=== PATIENT | female | born 1980 | race Two or more races ===

== ENCOUNTER 2016-09-24 10:33 | Day surgery (SDC) | payer OTHER ==
[2016-09-24 12:06] LABS: % IMMATURE GRANULYOCYTES 0.4 % (0.0-1.1); ABSOLUTE IMMATURE GRANULOCYTES 0.03 10^3/uL (0.00-0.10); ADD DIFF? NO; ADD MORPH? NO; ADD SCAN? NO; ATYPICAL LYMPHOCYTE FLAG 0 (0-99); FRAGMENT RBC FLAG 0 (0-99); HEMATOCRIT 43.2 % (38.0-47.0); HEMOGLOBIN 14.2 g/dL (12.6-16.3); LEFT SHIFT FLG 0 (0-99); LIPEMIA HEMOLYSIS FLAG 80 (0-99); MEAN CELL HEMOGLOBIN CONCENTR. 32.9 g/dL (32.4-36.7); MEAN CELL VOLUME 88.2 fL (81.5-99.8); MEAN PLATELET VOLUME 9.4 fL (8.7-11.7); PLATELET CLUMPS FLAG 0 (0-99); PLATELET COUNT 337 10^3/uL (150-400)
[2016-09-24] MEDS ORDERED: MIDAZOLAM 2 MG/2 ML VIAL ONE (12:29)
[2016-09-24] MEDS ORDERED: PROPOFOL/EMULSION 500 MG/50 ML BOTTLE IV ONE (12:36)
[2016-09-24] MEDS ORDERED: DEXAMETHASONE 4 MG/ML VIAL ONE (12:36)
[2016-09-24] MEDS ORDERED: ONDANSETRON 4 MG/2 ML VIAL ONE (12:36)
[2016-09-24] MEDS ORDERED: fentaNYL 100 MCG/2 ML INJ ONE (12:36)
[2016-09-24] MEDS ORDERED: KETOROLAC 30 MG/1 ML SDV ONE (12:37)
[2016-09-24] MEDS ORDERED: LIDOCAINE 2% JELLY 5 ML TUBE ONE (12:37)
[2016-09-24] MEDS ORDERED: LIDOCAINE 2% 100 MG/5 ML SYR IVP ONE (12:39)
[2016-09-24] MEDS ORDERED: LIDOCAINE 1% 30 ML SDV ONE (12:53)
--- NOTE | 2016-09-24 13:37 | GOP ---
[f rep st] OPERATIVE REPORT DATE OF OPERATION: 09/24/2016 SURGEON: Marta Butt MD ASSOCIATE COUNSEL: None. ANESTHESIA: General. PREOPERATIVE DIAGNOSIS: Intrauterine with missed at 10 weeks gestation. POSTOPERATIVE DIAGNOSIS: Intrauterine with missed at 10 weeks gestation. PROCEDURE PERFORMED: Suction dilation and curettage. FINDINGS: Missed at 9-1/2 weeks gestation. ESTIMATED BLOOD LOSS: Less than 10 mL. INDICATIONS: Edwige is a 36-year-old female, who presented for her routine visit, and was noted to have a demise at 9-1/2 weeks gestation. Desired surgical management. DESCRIPTION OF PROCEDURE: The patient was taken the operating room. She was prepped and draped in normal sterile fashion in high dorsal lithotomy position. The patient emptied her bladder prior to the procedure. A surgical time-out was performed verifying the patient's name, date of , planned procedure, and site. A bivalve speculum was placed in the patient's vagina. The anterior aspect of the cervix was grasped with a single-tooth tenaculum. The patient received a paracervical block of 1% lidocaine. The cervix was dilated to 10 mm. A 10 mm curved suction curette was placed into the uterine cavity and the uterine contents were aspirated until the uterus was clamping down. A sharp curettage took place. A gritty material texture was noted. The suction curette was placed into the cavity and no more tissue was aspirated. The bivalve speculum was removed. Hemostasis was obtained. The patient tolerated the procedure well and was stable to the recovery room. COMPLICATIONS: None. OUTCOME: Stable to the recovery room. /[id number]/MODL MTDD
== END 2016-09-24 14:32 | disposition home or self-care (01) ==
LOC: FOBOP 10:33
PROVIDERS: ATTEND Obstetrics & Gynecology
PROC: 10D17ZZ Extraction of Products of Conception, Retained, Via Natural or Artificial Opening (ICD-10-PCS; principal; 2016-09-24)
DX: O02.1 Missed abortion (principal)
CPT/HCPCS: J1100; J1885; J2001; J2250; J2405; J2704; J3010

== ENCOUNTER → 2019-01-13 | Outpatient (CLI) | payer OTHER | LOC: BRMIMAGING 12:04 | PROVIDERS: ATTEND Family Medicine | DX: Z12.31 Encounter for screening mammogram for malignant neoplasm of breast (principal); Z80.3 Family history of malignant neoplasm of breast ==